=== PATIENT | female | born 1980 | race Caucasian/White ===

== ENCOUNTER 2021-01-05 13:07 | Emergency (ER) | payer BC ==
[~2021-01-05] VITALS: Ht 162.6 cm; Wt 75.7 kg
[2021-01-05 13:21] VITALS: BP 126/70
[2021-01-05 16:01] LABS: APPEARANCE,URINE CLEAR (CLEAR); BILIRUBIN,URINE NEGATIVE (NEGATIVE); BLOOD, URINE TRACE-I (NEGATIVE); COLOR,URINE YELLOW (YELLOW); LEUKOCYTE ESTERASE ,URINE NEGATIVE (NEGATIVE); NITRITE, URINE NEGATIVE (NEGATIVE); UGLUCOSE NEGATIVE (NEGATIVE)
[2021-01-05 16:14] LABS: RBC,URINE 0-5 /HPF (0-5); WBC,URINE NONE SEEN /HPF (0-5)
[2021-01-05 17:31] VITALS: BP 126/70
--- NOTE | 2021-01-05 17:31 | NUR ---
Patient discharged with v/s stable. Written and verbal after care instructions given and explained. Patient verbalized understanding. Ambulatory with steady gait. All questions addressed prior to discharge. Advised to follow up with PMD.
== END 2021-01-05 17:31 | disposition home or self-care (01) ==
LOC: MED 13:07
DX: O46.91 Antepartum hemorrhage, unspecified, first trimester (principal); Z91.040 Latex allergy status
CPT/HCPCS: 36415; 81001; 81025; 84702; 86900; 86901; 99284